=== PATIENT | female | born 1990 | race Caucasian/White ===

== ENCOUNTER 2017-10-24 19:29 | Outpatient (CLI) | payer OTHER | END 2017-10-25 01:40 | disposition home or self-care (01) | LOC: OBT 19:29 → L-D 19:31 | DX: O36.8130 Decreased fetal movements, third trimester, not applicable or unspecified (principal); Z3A.29 29 weeks gestation of pregnancy | CPT/HCPCS: 76818 ==

== ENCOUNTER 2017-12-05 18:54 | Inpatient (IN) | payer OTHER ==
[2017-12-05] MEDS: TERBUTALINE 1 MG/ML INJ SC (21:43)
[2017-12-05] MEDS: LACTATED RINGER'S 1,000 ML IV (21:44)
[2017-12-05] MEDS: BETAMET NA PHOS/AC(6 MG/ML) 5ML INJ IM (21:44)
[2017-12-05 22:03] LABS: ADD UMIC YES; UR ASCORBIC ACID NEGATIVE (NEGATIVE); UR BACTERIA FEW /HPF (NONE SEEN); UR BILIRUBIN (Dip) NEGATIVE (NEGATIVE); UR BLOOD (Dip) 2+ mg/dL (NEGATIVE); UR CLARITY SLIGHTLY CLOUDY (CLEAR); UR COLOR YELLOW (YELLOW); UR GLUCOSE (Dip) 1+ mg/dL (NEGATIVE); UR KETONES (Dip) TRACE mg/dL (NEGATIVE); UR LEUKOCYTE ESTERASE (Dip) NEGATIVE Leu/ul (NEGATIVE); UR MUCUS MANY /HPF (NONE SEEN); UR NITRITE (Dip) NEGATIVE (NEGATIVE); UR RBC 1 /HPF (0-5); UR SPECIFIC GRAVITY (Dip) 1.027 (1.003-1.030); UR SQUAMOUS EPITHELIAL CELL FEW /HPF (FEW); UR TOTAL PROTEIN (Dip) 1+ mg/dl (NEGATIVE); UR UROBILINOGEN (Dip) 2+ mg/dL (NEGATIVE); UR WBC 1 /HPF (0-5)
[2017-12-05 23:15] LABS: ADD MAN DIFF? NO
[2017-12-05 23:17] LABS: BASOPHILS % 0.2 % (0.0-2.0); EOSINOPHILS # 0.1 10^3/ul (0.0-0.5); EOSINOPHILS % 0.6 % (0.0-7.0); HEMATOCRIT 31.3 % (37.0-47.0); HEMOGLOBIN 10.5 g/dl (12.0-16.0); LYMPHOCYTES # 3.5 10^3/ul (0.8-2.9); LYMPHOCYTES % 36.8 % (15.0-51.0); MEAN CORPUSCULAR HEMOGLOBIN 27.9 pg (29.0-33.0); MEAN CORPUSCULAR HGB CONC 33.5 g/dl (32.0-37.0); MEAN CORPUSCULAR VOLUME 83.2 fl (82.0-101.0); MEAN PLATELET VOLUME 10.7 fl (7.4-10.4); MONOCYTE # 0.6 10^3/ul (0.3-0.9); NEUTROPHIL # 5.2 10^3/ul (1.6-7.5); NEUTROPHILS % 55.8 % (39.0-77.0); PLATELET COUNT 181 10^3/UL (140-415); RED BLOOD COUNT 3.76 10^6/ul (4.20-5.40); RED CELL DISTRIBUTION WIDTH 14.2 % (11.5-14.5)
[2017-12-05 23:17] LABS: WHITE BLOOD COUNT 9.4 10^3/ul (4.8-10.8)
[2017-12-06] MEDS: NIFEdipine 10 MG CAP PO ×7 (00:03→23:52)
[2017-12-06] MEDS: LACTATED RINGER'S 1,000 ML IV ×3 (05:19→20:05)
[2017-12-06] MEDS: PRENATAL VITAMIN PO (09:00)
[2017-12-06] MEDS ORDERED: NIFEdipine 10 MG CAP PO (18:00)
[2017-12-06] MEDS: BETAMET NA PHOS/AC(6 MG/ML) 5ML INJ IM (22:05)
[2017-12-07] MEDS: LACTATED RINGER'S 1,000 ML IV ×2 (04:38→12:24)
[2017-12-07] MEDS: NIFEdipine 10 MG CAP PO ×2 (06:05→12:40)
[2017-12-07] MEDS: PRENATAL VITAMIN PO (09:12)
== END 2017-12-07 16:53 | disposition home or self-care (01) | DRG 778 ==
LOC: OBT 18:54 → L-D 18:55 → OBT 22:41 → L-D 22:46
DX: O60.03 Preterm labor without delivery, third trimester (principal); Z3A.34 34 weeks gestation of pregnancy
CPT/HCPCS: 76816; 76818; 81001; 85025; 87086

== ENCOUNTER 2017-12-19 21:48 | Outpatient (CLI) | payer OTHER ==
[2017-12-19] MEDS: LACTATED RINGER'S 1,000 ML IV (23:38)
[2017-12-20] MEDS: LACTATED RINGER'S 1,000 ML IV ×2 (00:22→09:33)
[2017-12-20] MEDS ORDERED: LACTATED RINGER'S 1,000 ML IV ×3 (01:34)
[2017-12-20] MEDS ORDERED: OXYTOCIN 30 UNITS/LR 500 ML IV ×3 (03:00)
[2017-12-20] MEDS ORDERED: LIDOCAINE 1% (MPF) 30 ML INJ INJ (03:00)
[2017-12-20] MEDS ORDERED: CARBOPROST 250 MCG INJ IM (03:00)
[2017-12-20] MEDS ORDERED: MISOPROSTOL 200 MCG TAB PR (03:00)
[2017-12-20] MEDS ORDERED: METHYLERGONOVINE 0.2 MG INJ IM (03:00)
[2017-12-20] MEDS ORDERED: BUTORPHANOL 2 MG INJ IV ×2 (03:00)
[2017-12-20 04:27] LABS: ADD MAN DIFF? NO
[2017-12-20 04:30] LABS: BASOPHILS % 0.3 % (0.0-2.0); EOSINOPHILS # 0.1 10^3/ul (0.0-0.5); EOSINOPHILS % 0.8 % (0.0-7.0); HEMATOCRIT 31.3 % (37.0-47.0); HEMOGLOBIN 10.6 g/dl (12.0-16.0); LYMPHOCYTES # 2.8 10^3/ul (0.8-2.9); LYMPHOCYTES % 25.3 % (15.0-51.0); MEAN CORPUSCULAR HGB CONC 33.9 g/dl (32.0-37.0); MEAN CORPUSCULAR VOLUME 82.8 fl (82.0-101.0); MEAN PLATELET VOLUME 10.9 fl (7.4-10.4); MONOCYTE # 0.7 10^3/ul (0.3-0.9); MONOCYTES % 6.2 % (0.0-11.0); NEUTROPHIL # 7.4 10^3/ul (1.6-7.5); NEUTROPHILS % 66.9 % (39.0-77.0); PLATELET COUNT 175 10^3/UL (140-415); RED BLOOD COUNT 3.78 10^6/ul (4.20-5.40); RED CELL DISTRIBUTION WIDTH 14.5 % (11.5-14.5)
[2017-12-20 04:55] LABS: INR 1.07; PT RATIO 1.1
[2017-12-20 04:56] LABS: PARTIAL THROMBOPLASTIN TIME 26.7 Sec (25.0-35.0)
[2017-12-20 05:26] LABS: HEPATITIS B SURFACE ANTIGEN NEGATIVE (NEGATIVE)
[2017-12-20 22:00] LABS: RAPID PLASMA REAGIN NONREACTIVE (NR)
[2017-12-22 13:38] LABS: RUBELLA ANTIBODY - IGG 1.16 index
[2017-12-25 12:08] LABS: RUBELLA ANTIBODY - IGM <20.00 AU/mL
== END 2017-12-20 14:00 | disposition home or self-care (01) ==
LOC: OBT 21:48 → L-D 21:52
DX: O62.9 Abnormality of forces of labor, unspecified (principal); Z3A.36 36 weeks gestation of pregnancy
CPT/HCPCS: 36415; 85025; 85610; 85730; 86592; 86762; 86850; 86900; 86901; 87340; 96360; 96361

== ENCOUNTER 2018-01-06 21:02 | Outpatient (CLI) | payer OTHER | END 2018-01-06 23:50 | disposition home or self-care (01) | LOC: OBT 21:02 → L-D 21:04 | DX: O62.9 Abnormality of forces of labor, unspecified (principal); Z3A.09 9 weeks gestation of pregnancy | CPT/HCPCS: Z7500 ==

== ENCOUNTER 2018-01-14 10:54 | Inpatient (IN) | payer OTHER ==
[2018-01-14] MEDS ORDERED: IBUPROFEN 600 MG TAB PO (11:30)
[2018-01-14] MEDS ORDERED: HYDROCODONE/APAP (5/325) TAB PO ×3 (11:30→22:00)
[2018-01-14] MEDS ORDERED: MISOPROSTOL 200 MCG TAB PR ×2 (11:30→22:00)
[2018-01-14] MEDS ORDERED: LIDOCAINE 1% (MPF) 30 ML INJ INJ (11:30)
[2018-01-14] MEDS ORDERED: METHYLERGONOVINE 0.2 MG INJ IM ×2 (11:30→22:00)
[2018-01-14] MEDS ORDERED: OXYTOCIN 30 UNITS/LR 500 ML IV ×2 (11:30→22:00)
[2018-01-14] MEDS ORDERED: CARBOPROST 250 MCG INJ IM ×2 (11:30→22:00)
[2018-01-14] MEDS ORDERED: BUTORPHANOL 2 MG INJ IV (11:30)
[2018-01-14 13:12] LABS: ADD MAN DIFF? NO
[2018-01-14 13:15] LABS: WHITE BLOOD COUNT 11.8 10^3/ul (4.8-10.8)
[2018-01-14 13:15] LABS: BASOPHILS % 0.3 % (0.0-2.0); EOSINOPHILS # 0.1 10^3/ul (0.0-0.5); EOSINOPHILS % 0.6 % (0.0-7.0); HEMATOCRIT 35.6 % (37.0-47.0); HEMOGLOBIN 11.8 g/dl (12.0-16.0); LYMPHOCYTES # 2.6 10^3/ul (0.8-2.9); LYMPHOCYTES % 22.3 % (15.0-51.0); MEAN CORPUSCULAR HEMOGLOBIN 27.3 pg (29.0-33.0); MEAN CORPUSCULAR HGB CONC 33.1 g/dl (32.0-37.0); MEAN CORPUSCULAR VOLUME 82.2 fl (82.0-101.0); MONOCYTE # 0.7 10^3/ul (0.3-0.9); MONOCYTES % 5.9 % (0.0-11.0); NEUTROPHIL # 8.2 10^3/ul (1.6-7.5); PLATELET COUNT 216 10^3/UL (140-415); RED BLOOD COUNT 4.33 10^6/ul (4.20-5.40); RED CELL DISTRIBUTION WIDTH 14.6 % (11.5-14.5)
[2018-01-14 13:43] LABS: INR 0.95; PARTIAL THROMBOPLASTIN TIME 26.7 Sec (25.0-35.0); PROTIME 12.8 Sec (11.9-14.9)
[2018-01-14] MEDS: LACTATED RINGER'S 1,000 ML IV ×3 (14:03→16:42)
[2018-01-14] MEDS: AMPICILLIN 2 GM/NS (PMX) 100 ML IV (14:03)
[2018-01-14] MEDS: OXYTOCIN 30 UNITS/LR 500 ML IV ×3 (14:04→19:40)
[2018-01-14 15:28] LABS: HEPATITIS B SURFACE ANTIGEN NEGATIVE (NEGATIVE)
[2018-01-14] MEDS: AMPICILLIN 1 GM/NS (PMX) 50 ML IV ×2 (15:36→19:30)
[2018-01-14] MEDS ORDERED: FENTAnyl 2MCG/ML-ROPIV 0.2% 100 ML (16:04)
[2018-01-14] MEDS ORDERED: MINERAL OIL LIGHT 10 ML VIAL TOP (16:59)
[2018-01-14] MEDS ORDERED: LACTATED RINGER'S 1,000 ML IV* (21:53)
[2018-01-14] MEDS ORDERED: ZOLPIDEM 5 MG TAB PO (22:00)
[2018-01-14] MEDS ORDERED: LANOLIN 7 GM TUBE TOP (22:00)
[2018-01-14] MEDS ORDERED: DIBUCAINE 1% 30 GM OINT PR (22:00)
[2018-01-14 22:16] LABS: RAPID PLASMA REAGIN NONREACTIVE (NR)
[2018-01-14] MEDS: WITCH HAZEL/GLYCERIN PAD PR (23:29)
[2018-01-14] MEDS: IBUPROFEN 600 MG TAB PO (23:29)
[2018-01-14] MEDS: BENZOCAINE 20% 56 ML SPRAY TOP (23:29)
[2018-01-14] MEDS: CEPHALEXIN 500 MG CAP PO (23:29)
[2018-01-15] MEDS: CEPHALEXIN 500 MG CAP PO ×3 (05:30→18:19)
[2018-01-15] MEDS: IBUPROFEN 600 MG TAB PO ×3 (05:30→18:19)
[2018-01-15 06:55] LABS: ADD MAN DIFF? NO
[2018-01-15 07:00] LABS: BASOPHILS % 0.3 % (0.0-2.0); EOSINOPHILS # 0.1 10^3/ul (0.0-0.5); EOSINOPHILS % 0.5 % (0.0-7.0); HEMATOCRIT 31.1 % (37.0-47.0); HEMOGLOBIN 10.3 g/dl (12.0-16.0); LYMPHOCYTES # 3.2 10^3/ul (0.8-2.9); LYMPHOCYTES % 22.2 % (15.0-51.0); MEAN CORPUSCULAR HEMOGLOBIN 27.3 pg (29.0-33.0); MEAN CORPUSCULAR HGB CONC 33.1 g/dl (32.0-37.0); MEAN CORPUSCULAR VOLUME 82.5 fl (82.0-101.0); MEAN PLATELET VOLUME 11.6 fl (7.4-10.4); MONOCYTE # 0.8 10^3/ul (0.3-0.9); MONOCYTES % 5.5 % (0.0-11.0); NEUTROPHIL # 10.2 10^3/ul (1.6-7.5); PLATELET COUNT 182 10^3/UL (140-415); RED BLOOD COUNT 3.77 10^6/ul (4.20-5.40); RED CELL DISTRIBUTION WIDTH 14.9 % (11.5-14.5)
[2018-01-15 07:00] LABS: WHITE BLOOD COUNT 14.4 10^3/ul (4.8-10.8)
[2018-01-15] MEDS: SENNA/DOCUSATE NA (8.6MG/50MG) TAB PO ×2 (10:14→21:45)
[2018-01-15] MEDS: MAGNESIUM HYDROXIDE 30ML CUP PO ×2 (10:15→21:45)
[2018-01-16] MEDS: IBUPROFEN 600 MG TAB PO ×3 (00:03→12:08)
[2018-01-16] MEDS: CEPHALEXIN 500 MG CAP PO ×3 (00:03→12:08)
[2018-01-16] MEDS: MAGNESIUM HYDROXIDE 30ML CUP PO (09:00)
[2018-01-16] MEDS ORDERED: MEASLES,MUMPS,RUBELLA VACCINE INJ SC* (09:00)
[2018-01-16] MEDS: SENNA/DOCUSATE NA (8.6MG/50MG) TAB PO (09:00)
[2018-01-16] MEDS: VARICELLA VACCINE LIVE/PF 1,350 UNIT/0.5 ML ML SC* (09:00)
[2018-01-16] MEDS ORDERED: DIPHTH/TET/ACEL PERTUSS (ADULT) 0.5 ML VIAL IM* (09:00)
== END 2018-01-16 17:46 | disposition home or self-care (01) | DRG 775 ==
LOC: L-D 10:54 → PP1 21:20
PROVIDERS: Obstetrics & Gynecology
PROC: 10E0XZZ Delivery of Products of Conception, External Approach (ICD-10-PCS; principal; 2018-01-14 09:00)
PROC: 0UQMXZZ Repair Vulva, External Approach (ICD-10-PCS; 2018-01-14 09:00)
PROC: 3E033VJ Introduction of Other Hormone into Peripheral Vein, Percutaneous Approach (ICD-10-PCS; 2018-01-14 09:00)
DX: O48.0 Post-term pregnancy (principal); Z3A.40 40 weeks gestation of pregnancy; O70.0 First degree perineal laceration during delivery; Z37.0 Single live birth
CPT/HCPCS: 62319; 76815; 85025; 85610; 85730; 86592; 86850; 86900; 86901; 87340